=== PATIENT | male | born 1970 | race Hispanic/Latino ===

== ENCOUNTER 2024-11-11 16:20 | Emergency (ER) | payer BC, OTHER ==
[~2024-11-11] VITALS: Ht 165.1 cm; Wt 62.1 kg
[~2024-11-11 16:20] MED LIST: COREG12.5 MG PO; DOXYCYCLINE HY100 MG PO; FOLIC ACID0.8 M1 PO; PANTOPRAZOLE SO40 MG PO; THORAZINE25 MG PO; VITAMIN B-1100 M1 PO
[2024-11-11 17:23] LABS: BASOPHILS % 0.4 % (0.0-1.0); EOSINOPHILS # (AUTO) 0.2 (0.0-0.4); EOSINOPHILS % 6.4 % (0.0-6.0); HEMATOCRIT 25.9 % (38.2-49.6); HEMOGLOBIN 7.2 g/dL (14.0-18.0); LYMPHOCYTES # (AUTO) 0.7 (1.0-3.2); LYMPHOCYTES % 28.1 % (18.0-39.1); MEAN CORPUSCULAR HEMOGLOBIN 19.3 pg (28-32); MEAN CORPUSCULAR HGB CONC 27.8 g/dL (31-35); MEAN CORPUSCULAR VOLUME 69.4 fL (81-99); MONOCYTES # (AUTO) 0.3 (0.2-0.8); MONOCYTES % 10.8 % (4.4-11.3); NEUTROPHILS # (AUTO) 1.3 (2.1-6.9); NEUTROPHILS % 53.9 % (38.7-80.0); PLATELET COUNT 75 x10e3/uL (140-360); RED BLOOD COUNT 3.73 x10e6/uL (4.3-5.7); RED CELL DISTRIBUTION WIDTH 17.6 % (11.7-14.4); WHITE BLOOD COUNT 2.49 x10e3/uL (4.8-10.8)
[2024-11-11 17:34] LABS: ALBUMIN 3.6 g/dL (3.5-5.0); ANION GAP 11.8 mmol/L (8-16); BILIRUBIN,TOTAL 0.9 mg/dL (0.2-1.2); CALCIUM 8.6 mg/dL (8.4-10.2); CREATININE, SERUM 0.82 mg/dL (0.72-1.25); POTASSIUM 3.8 mmol/L (3.5-5.1); TOTAL PROTEIN 7.3 g/dL (6.5-8.1)
[2024-11-11] MEDS ORDERED: SODIUM CHLORIDE 0.9% 250ML 250 ML ONE (22:22)
[2024-11-11] MEDS: SODIUM CHLORIDE 0.9% 250ML 250 ML IV ONE (22:34)
[2024-11-12 03:00] VITALS: PULSE 70; RESP 18; TEMP 98.6; O2SAT 100
== END 2024-11-12 03:07 | disposition home or self-care (01) ==
LOC: ER 17:25
DX: R53.83 Other fatigue (principal); D64.9 Anemia, unspecified; F10.10 Alcohol abuse, uncomplicated; R94.31 Abnormal electrocardiogram [ECG] [EKG]
CPT/HCPCS: 36415; 80053; 85025; 86850; 86900; 86920; 93005; 99284; J7050; P9016